=== PATIENT | male | born 2000 | race Two or more races ===

== ENCOUNTER 2022-12-04 18:23 | Emergency (ER) | payer MEDICAID, SELFPAY ==
[2022-12-04 18:34] VITALS: BP 125/73; PULSE 61; RESP 16; TEMP 36.7; O2SAT 98
--- NOTE | 2022-12-04 19:35 | CRLHL7_ITS ---
For Patients: As a result of the Cures Act, medical imaging exams and procedure reports are released immediately into your electronic medical record. You may view this report before your referring provider. If you have questions, please contact your health care provider. INDICATION: Intermittent left-sided scrotal pain. TECHNIQUE: Grayscale and Doppler/duplex/color sonography of the scrotum/testicles performed. FINDINGS: Right testicle is 4.6 x 2.2 x 3.2 cm. Left testicle 4.0 x 2.0 x 3.2 cm. Normal, symmetric appearing color blood flow to the bilateral testicles, with no evidence to suggest torsion. There is an isoechoic masslike area within left epididymis measuring 0.7 x 0.7 x 1.0 cm. This is not a simple cyst, and is nonspecific. There are slightly dilated venous structures in area, which could represent varicocele. No evidence of hydrocele. Right epididymis appears within normal limits. IMPRESSION: 1. Normal, symmetric ultrasound appearance of bilateral testicles with no evidence of testicular mass/torsion. 2. Indeterminate isoechoic area associated with left epididymis (0.7 x 0.7 x 1 cm) which could represent normal variation or resolved epididymitis. There are venous structures in the area which could represent small varicoceles. Dictated by Javed Hooks MD @ 12/04/2022 9:20:44 PM (Electronically Signed)
--- NOTE | 2022-12-04 19:57 | ED_ITS ---
HPI - General Adult General Date Seen: 12/04/22 Chief complaint: Groin Pain Stated complaint: Pain in private area Time Seen by Provider: 12/04/22 19:35 History of Present Illness HPI narrative: This is a 22-year-old male who presents to the ER today with concern for intermittent pain and swelling involving his left hemiscrotum. He is feeling like a painful lump that comes and goes near the back of his left testicle. It has been coming and going for the past 3 weeks or so. He notes that it is there after he masturbates. Sometimes gets this gets swollen perhaps almost the size of a cm or 2. When it is swollen it is quite painful. He notes that sometimes his testicles also sensitive when he is walking. No other symptoms. No urinary symptoms. No penile discharge. No fever. No abdominal pain. No rectal pain. No right scrotal pain. No flank pain. He is not currently in a relationship and has not been sexually active for quite some time. He does not know if he could have picked up an STD in his previous relationship. No other long-term medical problems. He does volunteer that he smokes marijuana. He also says he is very worried about his intermittently swollen testicle. He does not wanted to explode. He was seen in the ER at [address] on 11/02/2022. He had a scrotal ultrasound. Findings are available through a printout 11/02scrotal ultrasound Impression: Normal testicular ultrasound. Comparison 05/26/2021 Right testicle: The testicle is homogeneous in echogenicity with normal echotexture. No focal mass. The testicle is located within the scrotal sac. The testicle measures 2.9 x 1.3 x 4 point cm. Normal epididymis. No varicocele. No hydrocele. Left testicle: The testicle is homogeneous in echogenicity with normal echotexture. No focal mass. The testicle is located within the scrotal sac. The testicle measures 3.1 x 2.4 x 4.1 cm. Normal epididymis. No varicocele. No hydrocele. Normal testicular arterial and venous color Doppler flow with normal arterial and venous waveforms undo flaps Doppler. No inguinal hernia on either side. Related Data Previous Rx's Medication Instructions Recorded doxycycline monohydrate 100 mg 100 mg PO BID #20 caps 10/29/23 capsule Allergies Allergy/AdvReac Type Severity Reaction Status Date / Time No Known Drug Allergies Allergy Verified 12/04/22 18:41 Exam Narrative: Exam Narrative: Constitutional: Appears well-developed and well-nourished. Alert. Conversant but tearful and anxious.. Non toxic. HENT: Head: Atraumatic. Nose: Nose normal. Mouth/Throat: Oral mucosa is clear and moist. no trismus. Pharynx normal. Tonsils symmetric. No tonsillar enlargement, erythema, or exudate. Eyes: Conjunctivae normal. EOM normal. Pupils equal, round, and reactive to light. No scleral icterus. Neck: Normal range of motion. Neck supple. No tracheal deviation present. Cardiovascular: Normal rate, regular rhythm. No gallop. No friction rub. No murmur heard. Symmetric radial artery pulses Pulmonary/Chest: Effort normal. No stridor. No respiratory distress. No wheezes. No rales. No rhonchi . No tenderness. Abdominal: Soft. Bowel sounds normal. No distension. No mass. No tenderness. No rebound. No guarding. : Normal uncircumcised penis. No lesions or ulcer s. No inguinal masses. No palpable hernias or defects of the inguinal ring. Scrotum: Normal inspection. No palpable or visible mass. Right testicle: Normal position. Normal size and lie. Palpable nontender epididymis posteriorly. No palpable lesions of the somatic cord. Left testicle: Normal position. Normal size. Left testicle is mildly tender. Left spermatic cord mildly tender. Epididymis mildly tender. No blue dot sign. Musculoskeletal: RUE: Normal range of motion. No tenderness. No deformity LUE: Normal range of motion. No tenderness. No deformity RLE: Normal range of motion. No edema. No tenderness. No deformity LLE: Normal range of motion. No edema. No tenderness. No deformity Lymph: No inguinal adenopathy. Neurological: Alert and oriented to person, place, and time. Normal strength. CN II-VII intact. No sensory deficit. GCS eye subscore is 4. GCS verbal subscore is 5. GCS motor subscore is 6. Normal coordination Skin: Skin is warm and dry. No rash noted. No pallor. Normal capillary refill. Psychiatric: Normal mood. Normal affect. Const: Vital Signs, click to edit/add: Vital Signs - 24 hr 12/04/22 18:34 Temperature 98.0 F Pulse Rate [Left P ulse Oximeter] 61 Respiratory Rate 16 Blood Pressure [Ri ght Upper Arm] 125/73 Pulse Oximetry 98 Oxygen Delivery Me thod Room Air Course Vital Signs Vital signs: Initial Vital Signs Temperature 98.0 F 12/04/22 18:34 Temperature Source Temporal Artery Scan 12/04/22 18:34 Pulse Rate 61 12/04/22 18:34 Pulse Rhythm Regular 12/04/22 18:34 Respiratory Rate 16 12/04/22 18:34 Blood Pressure 125/73 12/04/22 18:34 Blood Pressure Mean 90 12/04/22 18:34 Blood Pressure Position Sitting 12/04/22 18:34 Pulse Oximetry 98 12/04/22 18:34 Oxygen Delivery Method Room Air 12/04/22 18:34 Vital Signs Temperature 98.0 F 12/04/22 18:34 Pulse Rate 61 12/04/22 18:34 Respiratory Rate 16 12/04/22 18:34 Blood Pressure 125/73 12/04/22 18:34 Pulse Oximetry 98 12/04/22 18:34 Oxygen Delivery Method Room Air 12/04/22 18:34 Temperature 98.0 F 12/04/22 18:34 Pulse Rate 61 12/04/22 18:34 Respiratory Rate 16 12/04/22 18:34 Blood Pressure 125/73 12/04/22 18:34 Pulse Oximetry 98 12/04/22 18:34 Oxygen Delivery Method Room Air 12/04/22 18:34 Medical Decision Making MDM Narrative Medical decision making narrative: This is a 22-year-old male bili sent into the ER today with concern for intermittent pain and swelling affecting the posterior aspect of his left testicle that is when present for the past few weeks. He was seen in the [place] [address] emergency room on 11/02 had a normal score ultrasound. He says he thinks he was told to follow up with someone but he does not know who and can not remember where he was told to go. He has had intermittent swelling on the posterior aspect of his left testicle. Swelling is not there now, but he still having mild discomfort. Differential would include epididymitis, epididymal cysts, varicocele, hydrocele, intermittent inguinal hernia. Less likely would be torsion. With only intermittent swelling, doubt testicular cancer. Patient is very worried he might need surgery for cancer. Urinalysis obtained here in the ER is negative. The patient is not currently sexually active. He does not know of any known exposure to STI, but he is not certain if his previous partner may have been unfaithful to him. He is not febrile. Scrotal ultrasound tonight shows evidence suspicious for possible epididymitis. Will treat him with anti-inflammatories and a course of antibiotics for epididymitis. Clean-catch urinalysis is negative. Urine for chlamydia and gonorrhea PCRs are currently pending. Will treat empirically for possible STI. First dose of Rocephin and doxycycline administered here in the ER. Prescriptions for doxycycline 100 mg b.i.d. for 10 days sent to his pharmacy at [facility] in [place]. He will use ibuprofen 600 mg t.i.d. p.r.n. for pain and anti-inflammatory effect. He will need outpatient follow-up with Urology or primary care. There is no urologist [facility] for [place]. Recommend that he either use his insurance card to find a urologist in network or call [facility]. He agrees to follow-up. When we discussed urology follow-up, he recalls that this is probably the people he was referred to from a few weeks ago. He expresses his intention to follow up and make sure everything is better. Precautions for return to the ER reviewed. Lab Data Labs: Lab Results 12/04/22 Range/Units 20:03 Urine Color Yellow (Yellow) Urine Appearance Slightly Cloudy A (Clear) Urine pH >= 9.0 H (5.0-8.5) Ur Specific [place] 1.010 (1.000-1.030) Urine Protein 2+ A (Negative) Urine Glucose (UA) Negative (Negative) Urine Ketones Negative (Negative) Urine Blood Negative (Negative) Urine Nitrite Negative (Negative) Urine Bilirubin Negative (Negative) Urine Urobilinogen 1.0 (0.2-1.0) Ur Leukocyte Esterase Negative (Negative) Urine RBC 0-2 (0-2) Urine WBC 0-2 (0-5) Urine WBC Clumps None (None) Ur Squamous Epith Cells None (None-Few) Amorphous Sediment Many A (None) Urine Bacteria Many A (None) C.trachomatis RNA (TMA) Cancelled Chlamydia/GC Media Type Cancelled N.gonorrhoeae Source Cancelled D N.gonorrhoeae RNA TMA Cancelled Imaging Data US scrotum: Attestation: I have reviewed the pertinent imaging results. Radiologist's impression: IMPRESSION: 1. Normal, symmetric ultrasound appearance of bilateral testicles with no evidence of testicular mass/torsion. 2. Indeterminate isoechoic area associated with left epididymis (0.7 x 0.7 x 1 cm) which could represent normal variation or resolved epididymitis. There are venous structures in the area which could represent small varicoceles. Discharge Plan Discharge Clinical Impression: Epididymitis Patient Disposition: Home, Self-Care Condition: Stable Instructions: Epididymitis (ED) Additional Instructions: Please follow-up with a urologist as soon as possible. Unfortunately, we do not have a urologist here at [facility]. You can call the number on the back of your insurance card to find a urologist to his ?in network? for you. Or you can call [facility] at 9:52 a.m. [phone] arrange a follow-up appointment. Call tomorrow to arrange an appointment is for soon as possible. If you cannot get into a urologist within 7-10 days, please follow-up with your regular primary care doctor. Return to the ER right away if you have worsening pain, high fever, bleeding or discharge from your penis, or any concerns. Prescriptions: New doxycycline monohydrate 100 mg capsule 100 mg PO BID Qty: 20 0RF Follow Up/Referrals: Provider,Not a Local [Primary Care Provider] - Stand Alone Forms: [employer] - [place] Info Instructions
[2022-12-04 20:25] LABS: Appearance Urine Slightly Cloudy (Clear); Bilirubin Urine Negative (Negative); Blood Urine Negative (Negative); Color Urine Yellow (Yellow); Glucose Urine Negative (Negative); Ketones Urine Negative (Negative); Leukocyte Esterase Urine Negative (Negative); Nitrite Urine Negative (Negative); Protein Urine 2+ (Negative)
[2022-12-04 20:26] LABS: pH Urine >= 9.0 (5.0-8.5)
[2022-12-04 20:52] LABS: Amorphous Sediment Urine Many; Bacteria Urine Many; RBC Urine 0-2 (0-2); WBC Urine 0-2 (0-5)
[2022-12-04] MEDS: LIDOCAINE 1% 5 ml (pf) 5 ML VIAL 1 ML IM (22:19)
[2022-12-04] MEDS: DOXYCYCLINE HYCLATE 100 MG PO (22:19)
[2022-12-04] MEDS: cefTRIAXone 500 MG VIAL IM (22:19)
[2022-12-04 22:23] LABS: Chlamydia DNA Amplified* NOT DETECTED (No Detected); GC DNA Amplified* NOT DETECTED (No Detected)
--- NOTE | 2022-12-08 11:54 | ED.NURSE ---
Patients mother called asking for a referral to be faxed to [facility] to get an appointment with the urologist. Discharge summary was faxed per her request.
== END 2022-12-04 22:25 | disposition home or self-care (01) ==
PROVIDERS: Emergency Provider Emergency Medicine
DX: N45.1 Epididymitis (principal)
CPT/HCPCS: 76870; 81001; 87086; 87491; 87591; 93976; 96372; 99283; 99284; A9270; J0696